=== PATIENT | female | born 1955 | race Caucasian/White ===

== ENCOUNTER 2020-03-01 06:32 | Inpatient (IN) ==
[~2020-03-01 06:32] MED LIST: ISOPROPYL ALCOHOL 480 APPL BTL MC ONE; ROPIVACAINE HCL/PF 100 MG, EPINEPHrine 0.2 MG, KETOROLAC TROMETHAMINE 30 MG in NORMAL S... IJ PRN; TRANEXAMIC ACID 1,000 MG in NORMAL SALINE 100 ML IV PRN; ceFAZolin SODIUM 1 GM VIAL IV PRN; ceFAZolin SODIUM 1 GM VIAL ONE
[2020-03-01] MEDS ORDERED: BUPIVACAINE HCL/EPINEPHRINE/PF 30 ML VIAL IJ ONE (06:37)
[2020-03-01] MEDS ORDERED: MIDAZOLAM HCL/PF 5 MG/ML VIAL ONE (06:38)
[2020-03-01] MEDS ORDERED: EPINEPHrine 1 MG/ML AMPUL ONE (06:38)
[2020-03-01] MEDS ORDERED: PROPOFOL VIAL IV ONE (06:39)
[2020-03-01] MEDS: RINGER'S SOLUTION,LACTATED 1,000 ML IV PRN ×2 (07:08→08:43)
--- NOTE | 2020-03-01 07:22 | ANES ---
Anesthesia Pre Procedure Eval Vitals/Labs: Last Vital Signs Temp 36.5 C 03/01/20 06:34 Pulse 74 03/01/20 06:34 Resp 16 03/01/20 06:34 BP 136/73 03/01/20 06:34 Pulse Ox 96 03/01/20 06:34 HOME MEDICATIONS cholecalciferol (vitamin D3) 50 mcg (2,000 unit) capsule 2,000 unit PO DAILY 09/16/18 [Last Taken Unknown] lisinopril 20 mg-hydrochlorothiazide 25 mg tablet 1 tab PO DAILY #90 tab 11/01/19 [Last Taken 03/01/20 05:00] tramadol 50 mg tablet 50 mg PO Q6H PRN #30 tab 01/11/20 [Last Taken Unknown] atorvastatin 10 mg tablet 10 mg PO DAILY #90 tab 02/23/20 [Last Taken Unknown] levothyroxine 50 mcg capsule 50 mcg PO DAILY #90 cap 02/29/20 [Last Taken Unknown] Allergies/Adverse Reactions: Allergies Allergy/AdvReac Type Severity Reaction Status Date / Time latex Allergy Intermediate RASH Verified 03/01/20 06:42 clindamycin Allergy Mild rash Verified 03/01/20 06:42 Penicillins Allergy Mild hives Verified 03/01/20 06:42 levofloxacin [From Levaquin] AdvReac Mild light Verified 03/01/20 06:42 headed - Planned Procedure Planned Procedure: RTK Medication List Reviewed:: Yes Allergies Verified: Yes Medical History (Last Reviewed 03/01/20 @ 07:17 by Diony Worley CRNA) Vitamin D deficiency (Chronic) Onset Date: Unknown Tubular adenoma of colon (Acute) Onset Date: ~01/31/17 Obesity (Chronic) Onset Date: Unknown Joint pain (Chronic) Onset Date: Unknown Hypothyroidism (Chronic) Onset Date: Unknown Hyperlipidemia (Chronic) Onset Date: Unknown Hypertension (Chronic) Onset Date: ~11/17/11 Cellulitis Onset Date: Unknown Internal derangement of right knee Onset Date: Unknown Knee pain, right Onset Date: Unknown Surgical History (Last Reviewed 03/01/20 @ 07:17 by Diony Worley CRNA) H/O wisdom tooth extraction (Acute) Onset Date: Unknown H/O tubal ligation (Acute) Onset Date: Unknown History of tonsillectomy (Acute) Onset Date: Unknown History of colonoscopy (Acute) Onset Date: ~11/11/10 Mary Anne-tubular adenoma S/P right knee arthroscopy Onset Date: 10/14/18 Family History (Last Reviewed 03/01/20 @ 07:18 by Diony Worley CRNA) Mother , breast cancer Cancer Father , colon cancer Cancer Hypertension Heart disease CVA (cerebral vascular accident) Hyperlipemia Brother Diabetes - Family Anesthesia History Family History:: no untoward family reactions to anesthesia, no familial bleed ing tendencies, no family history of clotting disorders, no family history of premature - Airway/Neck/Teeth Within Normal Limits:: Yes Teeth Condition: intact Neck Exam: full range of motion Mallampatti Score: 3 Thyromental (T-M) distance: > 6 cm Mandibulo Hyoid distance: > 3 cm - Respiratory Respiratory Physical: lungs clear Smoking Status: Never smoker Sleep Apnea currently treated: No Sleep Apnea by current assessment: Yes - possible, some symptoms and anatomy lends itself Discussed Risks/Treatment of SANTA: Yes - Cardiovascular Cardiac History: hypertension, hyperlipidemia Tolerate Activity: Fair Heart Sounds: S1 & S2, Regular - Gastrointestinal NPO since: 2400 - Anesthesia Assessment and Plan ASA Class: PS, II Anesthesia Type Plan: Block - adductor canal for post op pain relief, Spinal
[2020-03-01] MEDS ORDERED: ACETAMINOPHEN 500 MG TABLET PO PRN (10:11)
[2020-03-01] MEDS ORDERED: MAGNESIUM HYDROXIDE 30 ML UDC PO PRN (10:11)
[2020-03-01] MEDS ORDERED: diphenhydrAMINE HCL 50 MG/ML VIAL IV PRN (10:11)
[2020-03-01] MEDS ORDERED: MAG HYDROX/ALUMINUM HYD/SIMETH 30 ML UDC PO PRN (10:11)
[2020-03-01] MEDS ORDERED: MORPHINE SULFATE 2 MG/ML DISP.SYRIN IV PRN (10:11)
--- NOTE | 2020-03-01 10:18 | OR ---
Operative Report - Dictated Report Narrative: Date: 03/01/2020 Preoperative diagnosis: Right knee degenerative joint disease. Postoperative diagnosis: Right knee degenerative joint disease. Procedure: Right total knee arthroplasty. Surgeon: Rocky Saucedo M.D. Instructor Ballroom Dancing: Daniel Sánchez PA-C provided a set of essential, skilled, educated hands that assisted in positioning, transfer, retraction, manipulation, irrigation, closure of wounds, and placement of dressings all of which could not be provided by the available surgical crew. Anesthesia: Spinal with regional block and local periarticular joint injection. Complications: None Specimens: Bone for disposal. Estimated blood loss: Minimal. Tourniquet time: 64 minutes at 300 millimeters of mercury. Retained implants: Depuy Attune size 5 standard lugged cemented posterior stabilized femoral component. Size 5 cemented rotating bearing tibial platform. 5 by 7 millimeter posterior stabilized cross-linked tibial insert. 35 millimeter medialized patella button. Indications: Mily is a 64-year-old female who has been followed in my clinic for period of time with significant complaints of right knee pain consistent with arthritic changes. They had failed conservative measures including but not limited to activity modification, passage of time, medications, and other conservative measures. Patient wished to proceed with surgical treatment. The risks, benefits, and alternatives were discussed in clinic. The risks of , blood clots, bleeding, infection, nerve/tendon blood vessel/ injury, malposition of components, intraoperative fracture, postoperative limited range of motion, persistent pain, failure of components, and need for additional procedures. Patient wished to proceed consent was obtained after answering all questions. Procedure: After marking the correct extremity on the floor, the patient was taken to the operating room. A timeout was performed. IV antibiotics consisting of 2 g of Ancef were administered prior to the procedure. A regional followed by spinal anesthetic was induced by anesthesia. She was placed supine on the operative table with all bony prominences well-padded. Lizama catheter was placed and a bump was placed under the operative side buttock. SCDs and SCAR hose were utilized on the nonoperative leg. A well-padded tourniquet was applied to the operative thigh. The operative leg was then pre-scrubbed with alcohol prepped and draped in a standard sterile fashion. After exsanguinating the extremity with an Esmarch bandage, the tourniquet was inflated. After marking out the anterior knee for standard incision centered over the patella, the skin was incised and dissected down to the joint retinaculum. The joint retinaculum was marked out as well as the horizontal axis of the patella, and a standard medial parapatellar arthrotomy was then made. The most proximal aspect of the quadriceps tendon and the patella tendon insertion were protected from release. A partial synovectomy was performed as well as a resection of the infrapatellar fat pad. The distal femoral fat pad proximal to the trochlea was also resected using cautery. The soft tissues were elevated off the medial aspect of the proximal tibia using a Gonzalez elevator ensuring that we did not transect the medial collateral ligament. Upon initial evaluation range of motion was approximately 0 degrees to 125 degrees of flexion. There were signs of advanced arthrosis in the medial and patellofemoral joint spaces. There were large marginal osteophytes which were removed with a rongeur. The knee was hyperflexed and the patella was tucked laterally. Protecting the surrounding soft tissues with Homans, an entry drill was placed down the femoral canal using Whitesides line for guidance into the entry point. The intramedullary femoral alignment shena was utilized in order to cut the distal femur in 5 of valgus resecting 10 millimeters of bone. Next the distal femur was sized to a size 5. An anterior referencing guide was utilized to place the distal femoral cutting block in 3 of external rotation. This was pinned into place. The rotation was confirmed both visually and based on anatomic landmarks. The 4 in 1 cutting jig of the appropriate size was utilized in order to make all bony cuts. Retractors were utilized in order to protect surrounding soft tissues. This cut did not result in any excessive notching. We then cut the box centered over the distal femur. This allowed for resection of the anterior and posterior cruciate ligaments. I then turned my attention to the preparation of the tibia. Using an extra medullary tibial alignment shena, 3 millimeters of bone was resected off the medial articular surface. This was made perpendicular to the mechanical axis of the joint with the alignment shena centered over the ankle mortise. The alignment shena was parallel to the mechanical axis, centered over the medial one third of the tibial tubercle, paralleling the anterior surface of the tibia. We then turned our attention to the remaining meniscus and soft tissues. These were removed while protecting the surrounding ligaments and soft tissues. The marginal osteophytes off the anterior, posterior, medial, lateral aspects of the femur and tibia were removed. The tibia was sized out to a size 5. Next the tibia was drilled and punched in an externally rotated position as confirmed with a drop shena. Next the trial femur and a series of tibial inserts were utilized in order to allow for full extension and maximal flexion. It was found that a 7 millimeter insert gave the best range of motion and stability at multiple flexion points as well as at full extension there was less than 2 mm of gapping both medially and laterally. There is minimal anterior translation with the knee at 90 of flexion and no signs of being able to dislocate the knee. The patella was then prepared. The initial thickness was 21 millimeters. This was reamed down to 12 millimeters parallel to the anterior surface of the patella. It was sized out to a size 35 mm medialized patella button. This was then drilled and trialed. Without any medial restraint the patella tracked appropriately and did not sublux or dislocate. At this point, it was felt these were the appropriate sized implants and all trials were removed. The standard periarticular joint injection consisting of ropivacaine, Toradol, and epinephrine were injected into the periarticular joint tissues. The bony surfaces were thoroughly irrigated with a pulsatile-suction saline irrigation device. A bone plug from the prior resected anterior chamfer cut was placed into the drill hole at the distal femur. The bony surfaces were then dried in preparation for placement of the implants. The cement was vacuum mixed per the scientific manager's instructions. The cement was placed on the dry bony surfaces and posterior aspect of the implants. The implants were impacted into place, removing all extruded cement. At this point anesthesia administered tranexamic acid per protocol intravenously. The knee was placed in extension with axial loading with the trial insert while the cement cured. A dilute 0.35% betadyne-saline solution was used to irrigate the knee and allowed to sit in the knee while the cement cured. Once the cement cured, all remaining extruded cement was removed. The knee was placed through a range of motion with the trial insert to ensure appropriate range of motion and stability. Final range o f motion was approximately 0 to 125 degrees. The knee was again thoroughly irrigated with pulsatile saline lavage. The final polyethylene insert was then impacted into place ensuring no retained soft tissues. The remaining periarticular joint injection was injected. The knee was then packed with lap sponges which were soaked with dilute betadyne solution and the tourniquet was let down. Pressure was held for approximately 2 minutes and then hemostasis was obtained using electrocautery to coagulate any bleeding vessels. The knee was then placed over a triangle and the arthrotomy was closed with interrupted #1 Vicryl after thoroughly irrigating the joint. The deep and subcutaneous tissues were closed with interrupted 0 and 3-0 Vicryl respectively. Skin was closed with a running subcutaneous 3-0 Monocryl and Prineo dressing. 4 x 4's, ABD, Sof-Rol, and a full leg Jarek wrap were applied. All sponge, needle, blade, and instrument counts were correct prior to closing the wounds. Postoperative condition: The patient was awoken and transferred to the postanesthesia care unit in stable condition. Plan is to be admitted to the inpatient medical/surgical floor postoperatively for 24 hours of IV antibiotics, physical therapy, occupational therapy, and medical co-management. Patient will be weightbearing as tolerated with range of motion as tolerated. DVT prophylaxis will be with SCDs, SCAR hose, and pharmacological anticoagulation. Anticipated hospital stay is approximately 2-4 days.
--- NOTE | 2020-03-01 10:36 | ANES ---
Anesthesia Procedure Note Procedure Note: ANESTHESIA PROCEDURE NOTE Date of Procedure: 03/01/2020 Time of procedure: 7:55 AM. Performed by: BELIA Pablo CRNA, MSN Chro: Corine Rico RN. Preprocedure diagnosis: Post total knee arthroplasty surgery pain. Post procedure diagnosis: Same. Procedure: Right adductor Canal Block. Indications: Post right total knee arthroplasty pain relief. Findings: See below. Details of the procedure: The patient was brought to OR #4 and placed in supine position. The patient's right femoral area to the knee was prepped with chlorhexidine and using ultrasound guidance the right femoral artery and nerve was identified and then followed to the level of the adductor canal. Lidocaine 1% was infiltrated to the skin of the intended injection site. Under ultrasound guidance the saphenous nerve was approached with visualization of a 4 inch shielded block needle. Once saphenous nerve was identified with proximity to the needle tip, the saphenous nerve was surrounded with 20 mL bupivacaine 0.25% with 1-200,000 epinephrine. Please see radiology/ultrasound report for details and retained images of the procedure. EBL: 0 Fluids: N/A. Specimen: N/A. Post procedure condition: The patient tolerated the procedure well. No complications were noted. Thank you for this consultation. Diony Wolrey CRNA, ARNP, MSN
--- NOTE | 2020-03-01 10:37 | ANES ---
Post Anesthesia Discharge - Transfer of Care Transfer of Care handoff given to nurse: Yes - Discharge from PACU Discharge from PACU when meets criteria: Yes - Awake and comfortable.
--- NOTE | 2020-03-01 11:20 | ANES ---
Post Anesthesia Assessment - Vital Signs Vitals: Last Vital Signs Temp 36.5 C 03/01/20 11:01 Pulse 66 03/01/20 11:01 Resp 15 03/01/20 11:01 BP 137/81 03/01/20 11:01 Pulse Ox 100 03/01/20 11:01 Airway Patency: Normal - Mental Status Level Of Consciousness: Awake, Alert, Appropriate - Pain Level Pain Score: 0 - N/V Assessment Nausea/Vomiting Presence: None Dehydration:: No
[2020-03-01] MEDS: NORMAL SALINE 1,000 ML IV PRN ×2 (11:41→20:35)
[2020-03-01] MEDS: oxyCODONE HCL/ACETAMINOPHEN 1 TAB TABLET PO PRN ×3 (12:32→22:08)
[2020-03-01] MEDS: ONDANSETRON HCL/PF 2 MG/ML VIAL IV PRN (16:23)
[2020-03-01] MEDS: ceFAZolin SODIUM 2 GM in DEXTROSE 5 % IN WATER 50 ML IV SCH ×2 (16:55)
[2020-03-01] MEDS: SENNOSIDES/DOCUSATE SODIUM 1 TAB TABLET PO SCH (20:11)
[2020-03-01] MEDS: ROSUVASTATIN CALCIUM 10 MG TABLET PO SCH (20:11)
[2020-03-02] MEDS: ceFAZolin SODIUM 2 GM in DEXTROSE 5 % IN WATER 50 ML IV SCH ×4 (00:45→08:31)
[2020-03-02] MEDS: oxyCODONE HCL/ACETAMINOPHEN 1 TAB TABLET PO PRN ×4 (04:40→21:43)
[2020-03-02] MEDS: ONDANSETRON HCL/PF 2 MG/ML VIAL IV PRN (05:08)
[2020-03-02 06:56] LABS: Hematocrit 34.9 % (37.0-47.0); Hemoglobin 11.3 gm/dL (12.5-16.0); Mean Cell Volume 94.8 fl (78-100); Mean Corpuscular Hemoglobin 30.7 pg (27-31); Mean Corpuscular Hgb Conc 32.4 g/dl (32-36); Platelet Count 273 K/mm3 (150-450); Red Blood Count 3.68 M/mm3 (4.2-5.4); Red Cell Distribution Width 13.1 % (11.5-14.0); White Blood Count 9.6 K/mm3 (4.0-10.5)
[2020-03-02 07:05] LABS: Anion Gap 9.3 mmol/L (6.8-13.8); BUN/Creatinine Ratio 11.1 (9.0-21.6); Calcium * 8.2 mg/dL (7.9-10.9); Estimated Creat Clear 42.8; Potassium 3.3 mmol/L (3.4-4.6)
[2020-03-02] MEDS ORDERED: POTASSIUM CHLORIDE 20 MEQ TABLET.SA PO ONE (07:47)
[2020-03-02] MEDS: LISINOPRIL 20 MG TABLET PO SCH (08:30)
[2020-03-02] MEDS: CHOLECALCIFEROL 1,000 UNIT CAPSULE PO SCH (08:30)
[2020-03-02] MEDS: LEVOTHYROXINE SODIUM 50 MCG TABLET PO SCH (08:31)
[2020-03-02] MEDS: HYDROCHLOROTHIAZIDE 25 MG TABLET PO SCH (08:31)
[2020-03-02] MEDS: ONDANSETRON 4 MG TAB.RAPDIS PO PRN ×3 (09:31→18:55)
[2020-03-02] MEDS: ENOXAPARIN SODIUM 40 MG/0.4 ML SYRG SC SCH (09:32)
--- NOTE | 2020-03-02 14:51 | PN ---
Subjective - Date and Time Seen Date: 03/02/20 Time: 07:45 - Also saw patient [id number] Subjective Narrative: -64-year-old female postop day 1 status post right total knee arthroplasty. Patient is doing well she has had mild nausea and vomiting throughout the day today. She has been taking ODT Zofran. She does not this significantly improves her symptoms. She rates her knee pain a 57/10. She notes her pain is worse with weightbearing activity better with rest. She otherwise notes no other significant acute symptoms. She had an uncomplicated night. She notes she is worked with physical therapy and been up and ambulated about the room as well as down the thapa and worked on stairs. Objective - Vitals Vitals: Last Vital Signs Temp 37.2 C 03/02/20 10:57 Pulse 82 03/02/20 10:57 Resp 17 03/02/20 10:57 BP 159/83 H 03/02/20 10:57 Pulse Ox 98 03/02/20 10:57 - Abnormal Lab Findings Abnormal Lab Findings: Abnormal Lab Results 03/02/20 03/02/20 Range/Units 06:50 06:50 RBC 3.68 L (4.2-5.4) M/mm3 Hgb 11.3 L (12.5-16.0) gm/dL Hct 34.9 L (37.0-47.0) % Potassium 3.3 L (3.4-4.6) mmol/L Random Glucose 115 H (70-110) mg/dL - Exam Constitutional: Present: Alert, Oriented x3, Cooperative, No distress Respiratory: Present: no respiratory distress Extremity: Present: other - RLE--> sensate intact light touch, distal capillary refill brisk, 5/5 plantar flexion dorsiflexion ankle, operative dressings in place, diffuse mild tenderness about the knee Skin Exam: Present: normal color Appearance: Present: appropriate appearance Eye contact: Present: cooperative Thoughts: Present: normal thought pattern Cauti Physician Documentation - Urinary Catheter Management Urethral (Lizama) Date of Insertion: 03/01/20 Time of Insertion: 08:20 Assessment/Plan Plan Narrative: -64-year-old female postop day 1 status post right total knee arthroplasty -Weightbearing as tolerated, assistive device PRN -PT/OT progress as tolerated per protocol -Maintain postoperative dressings in place -P.o. diet as tolerated -P.o. pain medication as needed -DVT prophylaxis: Lovenox, SCDs in bed, SCAR hose knee-high -Nausea and vomiting, continue Zofran ODT, patient has gotten significant relief using this medication -Acute blood loss anemia, continue to monitor -Hypokalemia, patient was given oral potassium, continue to monitor as needed -Disposition: Continue to progress with PT/OT, note patient has been unable to pass stairs, must meet this goal prior to discharge home - Problems/Diagnosis (1) Status post total right knee replacement using cement Problem: Acute (2) Acute blood loss anemia Problem: Acute (3) Hypokalemia Problem: Acute
[2020-03-02] MEDS: SENNOSIDES/DOCUSATE SODIUM 1 TAB TABLET PO SCH (21:44)
[2020-03-02] MEDS: ROSUVASTATIN CALCIUM 10 MG TABLET PO SCH (21:44)
[2020-03-03] MEDS: oxyCODONE HCL/ACETAMINOPHEN 1 TAB TABLET PO PRN ×3 (03:33→13:22)
[2020-03-03 06:22] LABS: Hematocrit 30.4 % (37.0-47.0); Hemoglobin 9.9 gm/dL (12.5-16.0); Mean Cell Volume 94.4 fl (78-100); Mean Corpuscular Hemoglobin 30.7 pg (27-31); Mean Corpuscular Hgb Conc 32.6 g/dl (32-36); Mean Platelet Volume 10.1 fl (8-12.5); Platelet Count 246 K/mm3 (150-450); Red Blood Count 3.22 M/mm3 (4.2-5.4); White Blood Count 9.7 K/mm3 (4.0-10.5)
[2020-03-03 06:33] LABS: Anion Gap 9.7 mmol/L (6.8-13.8); BUN/Creatinine Ratio 7.4 (9.0-21.6); Calcium * 8.5 mg/dL (7.9-10.9); Carbon Dioxide 28.5 mmol/L (24-32.6); Estimated Creat Clear 44.6; Potassium 3.2 mmol/L (3.4-4.6)
[2020-03-03] MEDS: LEVOTHYROXINE SODIUM 50 MCG TABLET PO SCH (07:12)
[2020-03-03] MEDS: CHOLECALCIFEROL 1,000 UNIT CAPSULE PO SCH (09:40)
[2020-03-03] MEDS: LISINOPRIL 20 MG TABLET PO SCH (09:40)
[2020-03-03] MEDS: HYDROCHLOROTHIAZIDE 25 MG TABLET PO SCH (09:40)
[2020-03-03] MEDS: ENOXAPARIN SODIUM 40 MG/0.4 ML SYRG SC SCH (09:42)
--- NOTE | 2020-03-03 13:56 | DS ---
(1) Status post total right knee replacement using cement Problem: Acute (2) Acute blood loss anemia Problem: Acute (3) Hypokalemia Problem: Acute Date of Discharge:: 03/03/20 Hospital Course: 64-year-old female postop day 2 status post a right total knee arthroplasty. Uncomplicated stay she was admitted postoperatively for monitoring, PT/OT, return to p.o. diet, pain control. Postop day 1 patient had significant nausea and was unable to pass stairs with PT/OT. Due to this patient was kept for a second night. Patient also had mild acute blood loss anemia that was asymptomatic. Patient's nausea is now under control with p.o. medications, she has passed all goals with PT/OT, her pain is well controlled with p.o. pain medication, she is return to regular diet without significant complication. Patient otherwise is doing well and will be discharged home. Exam today right lower extremity postoperative dressings removed, pernio in place, no significant erythema or drainage, 5/5 plantar flexion dorsiflexion ankle, distal capillary refill brisk, sensation intact light touch, diffuse mild tenderness to the right knee. Patient will continue with the following recommendations and postoperative care plan: -Weightbearing as tolerated right lower extremity, assistive device PRN -PT/OT progress as tolerated per protocol -P.o. diet as tolerated, Zofran for nausea PRN -P.o. pain medication -DVT prophylaxis Lovenox until 10 days postop followed by 325 mg aspirin daily for 6 weeks -Follow-up in orthopedic outpatient clinic at 2 weeks postop -Call orthopedic outpatient clinic with any acute question or concerns -Maintain prenio dressing in place -Disposition: Discharge home with self-care, begin outpatient PT/OT Procedures Performed: see notes below List Procedures: Status post right total knee arthroplasty Results and Findings: Lab Pending Results 03/02/20 06:50: WBC 9.6, RBC 3.68 L, Hgb 11.3 L, Hct 34.9 L, MCV 94.8, MCH 30.7, MCHC 32.4, RDW 13.1, Plt Count 273, MPV 10.0 03/02/20 06:50: Sodium 141, Plasma Sodium 141, Potassium 3.3 L, Chloride 106, Carbon Dioxide 29.0, Anion Gap 9.3, BUN 11 D, Creatinine 0.99, Est GFR (Non-Af Amer) 60, BUN/Creatinine Ratio 11.1, Random Glucose 115 H, Calcium 8.2 03/03/20 06:10: WBC 9.7, RBC 3.22 L, Hgb 9.9 L, Hct 30.4 L, MCV 94.4, MCH 30.7, MCHC 32.6, RDW 13.0, Plt Count 246, MPV 10.1 03/03/20 06:10: Sodium 141, Plasma Sodium 141, Potassium 3.2 L, Chloride 106, Carbon Dioxide 28.5, Anion Gap 9.7, BUN 7, Creatinine 0.95, Est GFR (Non-Af Amer) 63, BUN/Creatinine Ratio 7.4 L, Random Glucose 112 H, Calcium 8.5 Discharge Location: Home Disposition: Home self-care Condition: Stable Discharge Activity: Activity as tolerated, Weight bearing - As tolerated, assistive device. Discharge Diet: General/regular food Referrals: Minnie Jamison DO [Primary Care Provider] - Problem Oriented Discharge Instructions to Patient/Family: Total Knee Replacement, Care After, Pbox-sa-Jizn Print Language (Burmese or Mauritian Available): Burmese Additional Patient Instructions (free text): Physical Therapy at [facility] in [place] on ThursdayMarch 06 9:15am. Please fax demographics and PT order to [phone]. Follow up Orthopedic office appointment with Dr Ortiz office on ThursdayMarch 14 at 1:30pm. Prescriptions (Any new or edited meds): Enoxaparin Sodium [Lovenox] 40 mg SC Q24H #8 disp.syrin Transmission Status: Pending to [facility] #[id number] oxyCODONE HCL/ACETAMINOPHEN [Percocet 5 MG/325 MG] 2 tab PO Q4H PRN #90 tab PRN Reason: Severe Pain (Pain Scale 7-10) Transmission Status: Received by [facility] #[id number] Ondansetron [Zofran Odt] 4 mg PO Q4H PRN #30 tab.rapdis PRN Reason: Nausea And Vomiting Transmission Status: Pending to [facility] #[id number] Complete Home Medications List: Complete Home Medication List: cholecalciferol (vitamin D3) 50 mcg (2,000 unit) capsule 2,000 unit PO DAILY 09/16/18 lisinopril 20 mg-hydrochlorothiazide 25 mg tablet 1 tab PO DAILY #90 tab 11/01/19 tramadol 50 mg tablet 50 mg PO Q6H PRN #30 tab 01/11/20 atorvastatin 10 mg tablet 10 mg PO DAILY #90 tab 02/23/20 levothyroxine 50 mcg capsule 50 mcg PO DAILY #90 cap 02/29/20 Enoxaparin Sodium [Lovenox] 40 mg SC Q24H #8 disp.syrin 03/03/20 Ondansetron [Zofran Odt] 4 mg PO Q4H PRN #30 tab.rapdis 03/03/20 oxyCODONE HCL/ACETAMINOPHEN [Percocet 5 MG/325 MG] 2 tab PO Q4H PRN #90 tab 03/03/20 Amb Orders for Discharge: PT Evaluation and Treatment* Location: None Selected Forms: Patient Portal Registration
[2020-03-03 14:36] VITALS: BP 121/56
== END 2020-03-03 15:32 | disposition home or self-care (01) | DRG 470 ==
LOC: MS 06:32
PROVIDERS: ADMIT Orthopaedic Surgery; ATTEND Orthopaedic Surgery
CPT/HCPCS: 36415; 73560; 80048; 85027; 97110; 97116; 97161; 97165; 97530; 97535; J2405